=== PATIENT | male | born 1965 | race Caucasian/White ===

== ENCOUNTER 2018-08-08 10:07 | Emergency (ER) | payer OTHER, SELFPAY ==
[2018-08-08] MEDS ORDERED: KETOROLAC 30 MG/ML INJ ONE (10:57)
[2018-08-08 11:04] LABS: Absolute Monocytes 1.2 K/uL (0.1-1.3); Absolute Neutrophil 4.3 K/uL (1.8-8.0); Basophils % 0.7 % (0-1.3); Eosinophils % 0.9 % (0-4.4); Hematocrit 40.8 % (39.6-49.0); Lymphocytes % 26.1 % (15.3-44.8); MCH 31.5 pg (27.0-35.0); MCV 90.1 fL (80-100); MPV 7.8 fL (7.6-11.3); Monocytes % 15.7 % (3.3-12.3); RBC Red Blood Cell Count 4.53 M/uL (4.33-5.43)
[2018-08-08 11:07] LABS: Protime INR 1.03
[2018-08-08 11:27] LABS: ALT/SGPT 39 U/L (12-78); AST/SGOT 24 U/L (15-37); Albumin 3.5 g/dL (3.4-5.0); Alkaline Phosphatase 77 U/L (45-117); BUN Blood Urea Nitrogen 12 mg/dL (7-18); Bicarbonate 28 mmol/L (21-32); Bilirubin Direct 0.3 mg/dL (0-0.2); Bilirubin Total 0.8 mg/dL (0.2-1.0); Glucose Level 129 mg/dL (74-106); Magnesium 1.8 mg/dL (1.8-2.4); NT PRO-BNP 46 pg/mL (<125); Potassium 3.7 mmol/L (3.5-5.1); Protein, Total 7.9 g/dL (6.4-8.2); Sodium Level 138 mmol/L (136-145); Troponin (Emerg Dept Use Only) < 0.02 ng/mL (0.0-0.045)
--- NOTE | 2018-08-08 11:31 | RAD REPORT ---
EXAM DESCRIPTION: RAD - Chest Single View - 08/08/2018 11:24 am CLINICAL HISTORY: CHEST PAIN Chest pain. COMPARISON: No comparisons FINDINGS: Portable technique limits examination quality. The lungs are grossly clear. The heart is normal in size. No displaced fractures. IMPRESSION: No acute intrathoracic process suspected.
--- NOTE | 2018-08-08 11:37 | RAD REPORT ---
EXAM DESCRIPTION: US - Extremity Venous Uni Ltd - 08/08/2018 11:28 am CLINICAL HISTORY: PAIN Leg swelling and edema. COMPARISON: No comparisons FINDINGS: Right lower extremity venous system was interrogated with Doppler technique. Normal flow, compressibility and augmentation was noted. There is no DVT present. IMPRESSION: No evidence of right lower extremity deep venous thrombosis.
--- NOTE | 2018-08-08 12:44 | RAD REPORT ---
EXAM DESCRIPTION: CT - Chest For Pe Angio - 08/08/2018 12:14 pm CLINICAL HISTORY: Chest pain, shortness of breath, pain below the left scapula COMPARISON: Chest films same date TECHNIQUE: Dynamically enhanced 3 mm thick images of the chest were obtained during administration o f approximately 150mL Isovue 370 IV contrast. Coronal and oblique MIP reconstruction images were gene rated and reviewed. Exam utilizes a protocol to evaluate the pulmonary arterial tree. All CT scans are performed using dose optimization technique as appropriate and may include automated exposure control or mA/KV adjustment according to patient size. FINDINGS: No pulmonary emboli are identified. The aorta as imaged shows no acute or suspicious finding. Heart size is upper normal. Left ventricula r wall thickness is increased but not definitive for left ventricular hypertrophy. No pericardial thi ckening or effusion. No mass or consolidation. Interstitial markings are mildly prominent. A minimal interstitial edema or infiltrate would be possible. No pleural effusion or pleural thickening. No mediastinal or hilar suspicious masses. No chest wall masses or abnormal axillary lymphadenopathy. No fracture or bone lesion identifiable. Thoracic spine degenerative changes are present. IMPRESSION: No pulmonary emboli identified. Minimal prominence of the interstitial markings in each base. A minimal interstitial infiltrate or ed oscar would be possible. No mass or consolidation. Left ventricular wall thickness is prominent but not definitive for left ventricular hypertrophy. No pericardial thickening or effusion.
--- NOTE | 2018-08-08 13:29 | EDPHYS ---
Physician Documentation [facility] Name: Elder Winter Age: 53 yrs Sex: Male : 1965 Arrival Date: 08/08/2018 Time: 10:08 Bed 17 Private MD: Greg Pollard T ED Physician Jp Mcfarland HPI: 08/08 10:46 This 53 yrs old Male presents to ER via Ambulatory with complaints of Chest cp Pain, Shortness Of Breath. 10:46 The patient presents with pain that is acute, with no known mechanism of injury. The cp symptoms are located in the left subscapular area. Onset: The symptoms/episode began/occurred 1.5 week(s) ago. Historical: - Allergies: 10:35 No Known Allergies; ss - Home Meds: 10:35 candido pen injection [Active]; metformin 750 mg Oral Tb24 1 tab once daily [Active]; ss piroxicam 20 mg Oral cap 1 cap once daily [Active]; allopurinol 100 mg Oral tab 1 tab once daily [Active]; atenolol 50 mg Oral tab 1 tab once daily [Active]; simvastatin 40 mg Oral tab 1 tab once daily [Active]; hydrochlorothiazide 25 mg Oral tab 1 tab once daily [Active]; aspirin 81 mg Oral TbEC 1 tab once daily [Active]; omeprazole 40 mg Oral cpDR 1 cap once daily [Active]; - Immunization history:: Adult Immunizations up to date. - Social history:: Smoking status: Patient/guardian denies using tobacco, but has a distant history of tobacco abuse. - Ebola Screening: : Patient denies exposure to infectious person Patient denies travel to an Ebola-affected area in the 21 days before illness onset. ROS: 10:50 Constitutional: Negative for body aches, chills, fever, poor PO intake. cp 10:50 Eyes: Negative for injury, pain, redness, and discharge. cp 10:50 ENT: Negative for drainage from ear(s), ear pain, sore throat, difficulty swallowing, difficulty handling secretions. 10:50 Neck: Negative for pain with movement, pain at rest, stiffness, tenderness. 10:50 Cardiovascular: Positive for chest pain, of the left lateral chest, Negative for edema, palpitations. 10:50 Respiratory: Positive for shortness of breath, on exertion. Negative for cough, hemoptysis, sputum production, wheezing. 10:50 Back: Positive for pain at rest, pain with movement, of the left subscapular area, Negative for injury or acute deformity, decreased range of motion. 10:50 : Negative for urinary symptoms. 10:50 Skin: Negative for cellulitis, rash. 10:50 Neuro: Negative for altered mental status, headache, syncope, weakness. 10:50 All other systems are negative. Exam: 10:47 ECG was reviewed by the Attending Physician. cp 10:55 Constitutional: The patient appears in no acute distress, alert, awake, cp non-diaphoretic, non-toxic, well developed, well nourished. 10:55 Head/Face: Normocephalic, atraumatic. Eyes: Pupils equal round and reactive to light, cp extra-ocular motions intact. Lids and lashes normal. Conjunctiva and sclera are non-icteric and not injected. Cornea within normal limits. Periorbital areas with no swelling, redness, or edema. ENT: Nares patent. No nasal discharge, no septal abnormalities noted. Tympanic membranes are normal and external auditory canals are clear. Oropharynx with no redness, swelling, or masses, exudates, or evidence of obstruction, uvula midline. Mucous membranes moist. Neck: Trachea midline, no thyromegaly or masses palpated, and no cervical lymphadenopathy. Supple, full range of motion without nuchal rigidity, or vertebral point tenderness. No Meningismus. Chest/axilla: Normal chest wall appearance and motion. Nontender with no deformity. No lesions are appreciated. 10:55 Cardiovascular: Rate: normal, Rhythm: regular, Pulses: Pulses are 2+ in right radial artery and left radial artery. Heart sounds: murmur, not appreciated, rub, not appreciated, gallop, not appreciated, Edema: is not appreciated, JVD: is not appreciated. 10:55 Respiratory: the patient does not display signs of respiratory distress, Respirations: normal, no use of accessory muscles, no retractions, no splinting, no tachypnea, labored breathing, is not present, Breath sounds: are clear throughout, no decreased breath sounds, no stridor, no wheezing. 10:55 Abdomen/GI: Inspection: abdomen appears normal, Bowel sounds: active, all quadrants, Palpation: abdomen is soft and non-tender, in all quadrants, rebound tenderness, is not appreciated, voluntary guarding, is not appreciated, involuntary guarding, is not appreciated. 10:55 Back: pain, that is mild, of the left subscapular area, ROM is normal, vertebral tenderness, is not appreciated, muscle spasm, is not present. 10:55 Skin: cellulitis, is not appreciated, no rash present. 10:55 Neuro: Orientation: to person, place \T\ time. Mentation: is normal, Cerebellar function: is grossly normal, Motor: moves all fours, strength is normal, Sensation: is normal. Vital Signs: 10:35 Resp 17; Temp 97.6(TE); Weight 120.2 kg; Pain 7/10; ss 10:37 Pulse 82; Pulse Ox 100% on R/A; ss 12:03 BP 96 / 77; Pulse 80; Resp 18; Pulse Ox 94% on R/A; em 12:49 BP 137 / 75; Pulse 78; Resp 18; Pulse Ox 97% on R/A; Pain 4/10; em 13:55 BP 130 / 71; Pulse 81; Resp 19; Pulse Ox 97% on R/A; Pain 3/10; em MDM: 10:29 Patient medically screened. [facility] 11:29 ED course: Received phone report from [employer] that RLE DVT study negative. 13:26 Data reviewed: vital signs, nurses notes, lab test result(s), EKG, radiologic studies, cp CT scan, plain films. 13:26 Test interpretation: by ED physician or midlevel provider: ECG, plain radiologic cp studies. 08/08 10:43 Order name: Basic Metabolic Panel; Complete Time: 11: 08/08 13:23 Interpretation: Normal except: GLUC 129. 08/08 10:43 Order name: CBC with Diff; Complete Time: 11: 08/08 11: Interpretation: Normal except: MN% 15.7. 08/08 10:43 Order name: LFT's; Complete Time: : 08/08 13:23 Interpretation: Normal except: BILID 0.3; GLOB 4.4; A/G 0.8. 08/08 10:43 Order name: Magnesium; Complete Time: 11: cp 08/08 10:43 Order name: NT PRO-BNP; Complete Time: 11: 08/08 10:43 Order name: PT-INR; Complete Time: 11:11 cp 08/08 10:43 Order name: Troponin (emerg Dept Use Only); Complete Time: 11:29 cp 08/08 10:43 Order name: XRAY Chest (1 view); Complete Time: 11:38 cp 08/08 10:43 Order name: D-Dimer; Complete Time: 11:11 cp 08/08 11:12 Interpretation: Abnormal: D-DIMER 615. cp 08/08 10:43 Order name: US Extremity Venous Unilateral Ltd; Complete Time: 12:54 cp 08/08 10:43 Order name: Influenza Screen (a \T\ B); Complete Time: 11:38 cp 08/08 11:39 Order name: CT Chest For PE Angio; Complete Time: 12:54 cp 08/08 10:43 Order name: EKG; Complete Time: 10:45 cp 08/08 10:43 Order name: Cardiac monitoring; Complete Time: 10:45 cp 08/08 10:43 Order name: EKG - Nurse/Tech; Complete Time: 10:46 08/08 10:43 Order name: IV Saline Lock; Complete Time: 10:46 cp 08/08 10:43 Order name: Labs collected and sent; Complete Time: 10:46 cp 08/08 10:43 Order name: O2 Per Protocol; Complete Time: 10:46 08/08 10:43 Order name: O2 Sat Monitoring; Complete Time: 10:46 cp EC:47 Rate is 81 beats/min. Rhythm is regular. [place] interval is normal. QRS interval is normal. cp QT interval is normal. T waves are Flattened in lead III. Interpreted by me. Reviewed by me. Administered Medications: 10:50 Drug: TORadol 30 mg Route: IVP; Site: right antecubital; tw2 12:22 Follow up: Response: No adverse reaction; Pain is decreased em 13:36 Drug: Albuterol 2.5 mg Route: Inhalation; em 13:37 Drug: AtroVENT Aerosol 0.5 mg Route: Inhalation; em Disposition: 08/08/18 13:28 Discharged to Home. Impression: Other chest pain, Shortness of breath. - Condition is Stable. - Discharge Instructions: Nonspecific Chest Pain, Shortness of Breath, Aspirin and Your Heart. - Prescriptions for Zithromax Z- Travis 250 mg Oral Tablet - take 1 tablet by ORAL route as directed for 5 days Day 1 - take two (2) tablets one time. Day 2, 3, 4 , 5 take one (1) tablet once daily.; 6 tablet. Albuterol Sulfate 90 mcg/actuation - inhale 1-2 puff by INHALATION route every 4-6 hours; 1 Inhaler. Tramadol 50 mg Oral Tablet - take 1 tablet by ORAL route every 8 hours as needed; 15 tablet. - Medication Reconciliation Form, Thank You Letter, Antibiotic Education, Prescription Opioid Use form. - Follow up: Greg Pollard MD; When: 2 - 3 days; Reason: Recheck today's complaints. - Problem is new. - Symptoms have improved. Addendum: 08/11/2018 08:09 Co-signature as Attending Physician, Jp Mcfarland MD I agree with the assessment and c mason plan of care. Signatures: Dispatcher [employer] EDMD Jp Mcfarland MD MD cha Munoz, Edgar, AUTOMATIC PACKER OPERATOR AUTOMATIC PACKER OPERATOR em Tia Cuello RN RN ss Jp Scott PA PA cp Sandra Ray, RN RN tw2 Corrections: (The following items were deleted from the chart) 08/08 14:02 13:28 08/08/2018 13:28 Discharged to Home. Impression: Other chest pain; Shortness of em breath. Condition is Stable. Forms are Medication Reconciliation Form, Thank You Letter, Antibiotic Education, Prescription Opioid Use. Follow up: Greg Pollard; When: 2 - 3 days; Reason: Recheck today's complaints. Problem is new. Symptoms have improved. cp
--- NOTE | 2018-08-08 13:29 | ER ---
Nurse's Notes [facility] Name: Elder Winter Age: 53 yrs Sex: Male : 1965 Arrival Date: 08/08/2018 Time: 10:08 Bed 17 Private MD: Greg Pollard T Diagnosis: Other chest pain;Shortness of breath Presentation: 08/08 10:31 Presenting complaint: Patient states: pain below L scapula that began 1.5 weeks ago. ss Given Prednisone and reports that pain subsided, but is back and now more on the L lateral aspect of chest wall. Alejandro cough/ fever. Transition of care: patient was not received from another setting of care. Onset of symptoms was July 28, 2018. Risk Assessment: Do you want to hurt yourself or someone else? Patient reports no desire to harm self or others. Initial Sepsis Screen: Does the patient meet any 2 criteria? No. Patient's initial sepsis screen is negative. Does the patient have a suspected source of infection? No. Patient's initial sepsis screen is negative. Care prior to arrival: None. 10:31 Method Of Arrival: Ambulatory ss 10:31 Acuity: NABILA 3 ss Historical: - Allergies: 10:35 No Known Allergies; ss - Home Meds: 10:35 candido pen injection [Active]; metformin 750 mg Oral Tb24 1 tab once daily [Active]; ss piroxicam 20 mg Oral cap 1 cap once daily [Active]; allopurinol 100 mg Oral tab 1 tab once daily [Active]; atenolol 50 mg Oral tab 1 tab once daily [Active]; simvastatin 40 mg Oral tab 1 tab once daily [Active]; hydrochlorothiazide 25 mg Oral tab 1 tab once daily [Active]; aspirin 81 mg Oral TbEC 1 tab once daily [Active]; omeprazole 40 mg Oral cpDR 1 cap once daily [Active]; - Immunization history:: Adult Immunizations up to date. - Social history:: Smoking status: Patient/guardian denies using tobacco, but has a distant history of tobacco abuse. - Ebola Screening: : Patient denies exposure to infectious person Patient denies travel to an Ebola-affected area in the 21 days before illness onset. Screenin:35 Abuse screen: Denies threats or abuse. Nutritional screening: No deficits noted. tw2 Tuberculosis screening: No symptoms or risk factors identified. Fall Risk None identified. Assessment: 10:34 General: Appears in no apparent distress. obese, Behavior is calm, cooperative, tw2 appropriate for age. Pain: Complains of pain in chest Pain does not radiate. Pain began. Neuro: Level of Consciousness is awake, alert, obeys commands, Oriented to person, place, time, situation. Cardiovascular: Reports chest pain, Heart tones S1 S2 Capillary refill < 3 seconds Patient's skin is warm and dry. Respiratory: Airway is patent Respiratory effort is even, unlabored, Respiratory pattern is regular, symmetrical, Breath sounds are clear bilaterally. GI: No signs and/or symptoms were reported involving the gastrointestinal system. Abdomen is round non-distended, obese, Bowel sounds present X 4 quads. : No signs and/or symptoms were reported regarding the genitourinary system. EENT: No signs and/or symptoms were reported regarding the EENT system. Derm: No signs and/or symptoms reported regarding the dermatologic system. Musculoskeletal: Range of motion: intact in all extremities. 11:30 Reassessment: Patient appears in no apparent distress at this time. Patient and/or em family updated on plan of care and expected duration. Pain level reassessed. Patient is alert, oriented x 3, equal unlabored respirations, skin warm/dry/pink. 12:30 Reassessment: Patient appears in no apparent distress at this time. Patient and/or em family updated on plan of care and expected duration. Pain level reassessed. Patient is alert, oriented x 3, equal unlabored respirations, skin warm/dry/pink. 13:39 Reassessment: Patient appears in no apparent distress at this time. Patient and/or em family updated on plan of care and expected duration. Pain level reassessed. Patient is alert, oriented x 3, equal unlabored respirations, skin warm/dry/pink. rates pain 4/10 Patient denies pain at this time. Patient states feeling better. Patient states symptoms have improved. 14:00 Reassessment: Patient appears in no apparent distress at this time. No changes from tw2 previously documented assessment. Patient and/or family updated on plan of care and expected duration. Pain level reassessed. Patient is alert, oriented x 3, equal unlabored respirations, skin warm/dry/pink. Vital Signs: 10:35 Resp 17; Temp 97.6(TE); Weight 120.2 kg; Pain 7/10; ss 10:37 Pulse 82; Pulse Ox 100% on R/A; ss 12:03 BP 96 / 77; Pulse 80; Resp 18; Pulse Ox 94% on R/A; em 12:49 BP 137 / 75; Pulse 78; Resp 18; Pulse Ox 97% on R/A; Pain 4/10; em 13:55 BP 130 / 71; Pulse 81; Resp 19; Pulse Ox 97% on R/A; Pain 3/10; em ED Course: 10:08 Patient arrived in ED. rg4 10:08 Greg Pollard MD is Private Physician. rg4 10:27 Jp Scott [facility]. cp 10:27 Jp Mcfarland MD is Attending Physician. cp 10:30 Inserted saline lock: 20 gauge in right antecubital area, using aseptic technique. tw2 Blood collected. 10:30 Placed in gown. Bed in low position. Call light in reach. Adult w/ patient. Cardiac tw2 monitor on. Pulse ox on. NIBP on. 10:32 Triage completed. ss 10:33 Sandra Ray, RN is Primary Nurse. tw2 10:34 Patient maintains SpO2 saturation greater than 95% on room air. tw2 10:36 EKG done, by ED staff, reviewed by Jp Mcfarland MD. mh5 10:36 Arm band placed on. tw2 10:39 Patient has correct armband on for positive identification. Side rails up X 1. Warm mh5 blanket given. 10:51 X-ray completed. Portable x-ray completed in exam room. Patient tolerated procedure ag1 well. 10:54 Influenza Screen (a \T\ B) Sent. tw2 11:24 XRAY Chest (1 view) In Process Unspecified. EDMS 11:28 US Extremity Venous Unilateral Ltd In Process Unspecified. EDMS 12:15 CT Chest For PE Angio In Process Unspecified. EDMS 13:27 Greg Pollard MD is Referral Physician. cp 14:01 No provider procedures requiring assistance completed. IV discontinued, intact, em bleeding controlled, No redness/swelling at site. Pressure dressing applied. Administered Medications: 10:50 Drug: TORadol 30 mg Route: IVP; Site: right antecubital; tw2 12:22 Follow up: Response: No adverse reaction; Pain is decreased em 13:36 Drug: Albuterol 2.5 mg Route: Inhalation; em 13:37 Drug: AtroVENT Aerosol 0.5 mg Route: Inhalation; em Outcome: 13:28 Discharge ordered by . cp 14:01 Discharged to home ambulatory, with family. em 14:01 Condition: good 14:01 Discharge instructions given to patient, Instructed on discharge instructions, follow up and referral plans. medication usage, Demonstrated understanding of instructions, follow-up care, medications, Prescriptions given X 3. 14:02 Patient left the ED. em Signatures: Dispatcher [employer] EDMS Bryson Benavides, DEPARTMENTAL SHIPPING CLERK DEPARTMENTAL SHIPPING CLERK em Tia Cuello, RN RN ss Jennifer Khalil ag1 Jp Scott, PA PA Sandra Hubbard RN RN tw2 Cassy Magdaleno [facility] Cordelia Thomas [facility] Corrections: (The following items were deleted from the chart) 10:37 10:36 BP 121 / 109; Pulse 82bpm; Resp 18bpm; Pulse Ox 100% RA; tw2 tw2 12:33 10:37 General: The previous assessment is accurate, call light remains within reach. em Family remains at bedside . ss
[2018-08-08] MEDS ORDERED: ALBUTEROL 2.5 MG/3 ML NEB SOL ONE (13:40)
[2018-08-08] MEDS ORDERED: IPRATROPIUM BROM 0.5MG/2.5ML ONE (13:40)
--- NOTE | 2018-08-09 07:04 | EKG ---
Test Date: 2018-08-08 Test Time: 10:32:04 Toddler Lead Teacher: RIYA MEASUREMENT RESULTS: Intervals: Rate: 81 DE: 156 QRSD: 80 QT: 384 QTc: 446 [place]: P: 42 DE: 156 QRS: 43 T: 29 INTERPRETIVE STATEMENTS: Normal sinus rhythm Normal ECG Compared to ECG 09/18/2002 23:32:00 T-wave abnormality no longer present Electronically Signed On 08-09-18 07:03:15 TAX PROCESSOR by Nash Cam
== END 2018-08-08 14:02 | disposition home or self-care (01) ==
LOC: ER 10:07
DX: R06.02 Shortness of breath (principal); Z79.82 Long term (current) use of aspirin
CPT/HCPCS: 36415; 71045; 71275; 80048; 80076; 83735; 83880; 84484; 85025; 85379; 85610; 87804; 93005; 93971; 96374; 99285; Q9967